=== PATIENT | female | born 1965 | race Caucasian/White ===

== ENCOUNTER → 2016-07-12 | Outpatient (CLI) | payer MEDICAID | LOC: FCPNEURO 21:00 | PROVIDERS: ATTEND Psychiatry & Neurology Sleep Medicine | DX: G47.33 Obstructive sleep apnea (adult) (pediatric) (principal); G47.39 Other sleep apnea; G47.36 Sleep related hypoventilation in conditions classified elsewhere ==

== ENCOUNTER 2016-11-23 13:14 | Emergency (ER) | payer MEDICAID ==
--- NOTE | 2016-11-23 13:26 | EDPHY ---
HPI/HX/ROS/PE/MDM - Data Points Imaging: Discussed imaging studies w/ call circuit worker Radiologist, I viewed and interpreted images myself Narrative: CHIEF COMPLAINT: Chest pain, leg swelling HPI: The patient is a 51 y/o female with a history of chronic intermittent chest pain complaining of chest pain onset last night. She developed right leg swelling four days ago that has caused difficulty walking due to pain. She began to feel short of breath and generally ill last night and subsequently developed chest pain. She describes her chest pain as heaviness and burning located substernally and radiating up towards her right shoulder. Her pain is aggravated by exhalation. She says this is unlike her previous episodes of chest pain. 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 REVIEW OF SYSTEMS: Aside from elements discussed in the HPI, a comprehensive 10-point review of systems was reviewed and is negative. PMH: chronic chest pain, ortho surgery, thymus surgery (open heart?) SOCIAL HISTORY: Smoker. PCP: Dr. Fang. Prior medical records reviewed including ED visit 02/01/12 for chest pain. PHYSICAL EXAM: General:Patient is alert, in no acute distress. ENT:Eyes are normal to inspection. ENT inspection normal. Neck: Normal inspection. Full range of motion. Respiratory:No respiratory distress. Breath sounds normal bilaterally. Cardiovascular: Regular rate and rhythm. Strong peripheral pulses. Normal cap refill. Abdomen:The abdomen is nontender to palpation. There are no peritoneal signs. Back: Normal to inspection. No tenderness to palpation. Skin: Normal color. No rash. Warm and dry. Extremities: 2+ pedal edema on right. Normal appearance. Full range of motion. Neuro: Oriented x3. Normal motor function. Normal sensory function. (Bari Calles) ED Course: IV established. Labs drawn. Patient placed on secured entrance monitor. Chest x-ray ordered. The 12 lead EKG was interpreted by myself. See hard copy and/or "tracemaster" electronic copy for interpretation. Chest x-ray: nothing acute. D-dimer elevated at 1.74. Due to this in conjunction with her symptoms, we will perform a chest CTA to rule out PE. Leg US ordered to rule out DVT. Patient agrees to imaging. 1510: Patient care signed out to Dr. Jiménez at shift change pending imaging results. (Bari Calles) 15:10 Assumed care of this patient from Dr. Calles at shift change. CTA chest and US right lower extremity pending at this time. [address] Walker, radiologist. CTA negative for PE. [address] Walker, radiologist. Leg US shows DVT. CT negative for PE. 1621 Assessed patient. She has been on anticoagulants before many years ago associated with a surgery. Plan to start her on Xarelto. Risks and benefits of this medication discussed. She will follow up with her PCP for continued management of her anticoagulation regimen. Return precautions discussed. The patient is comfortable with this plan. (Carlos Jiménez) - Data Points Imaging Results: Imaging Impressions Chest X-Ray 11/23/16 13:55 Impression: Mild airways disease. Otherwise nothing acute. Chest/Thorax CTA 11/23/16 14:27 Impression: 1. No evidence of pulmonary embolus using CT protocol. 2. No significant abnormality seen within the chest. These findings were discussed by telephone with Dr. Carlos Jiménez at 15:41 hour , 11/23/2016. Extremity Venous Study 11/23/16 15:04 Impression: 1. DVT right popliteal vein extending into the proximal calf veins as well as intramuscular gastrocnemius venous branch. These findings were discussed by telephone with Dr. Carlos Jiménez at 16:09 hour , 11/23/2016.. Laboratory Results: Laboratory Results 11/23/16 13:40 11/23/16 13:40 11/23/16 11/23/16 11/23/16 13:40 13:40 13:40 WBC 8.58 10^3/uL 10^3/uL (3.80-9.50) RBC 5.11 10^6/uL 10^6/uL (4.18-5.33) Hgb 15.6 g/dL g/dL (12.6-16.3) Hct 46.5 % % (38.0-47.0) MCV 91.0 fL fL (81.5-99.8) MCH 30.5 pg pg (27.9-34.1) MCHC 33.5 g/dL g/dL (32.4-36.7) RDW 13.4 % % (11.5-15.2) Plt Count 158 10^3/uL 10^3/uL (150-400) MPV 11.7 fL fL (8.7-11.7) Neut % (Auto) 73.2 % % (39.3-74.2) Lymph % (Auto) 20.2 % % (15.0-45.0) [place] % (Auto) 4.0 % L % (4.5-13.0) Eos % (Auto) 2.0 % % (0.6-7.6) Baso % (Auto) 0.3 % % (0.3-1.7) Nucleat RBC Rel Count 0.0 % % (0.0-0.2) Absolute Neuts (auto) 6.28 10^3/uL 10^3/uL (1.70-6.50) Absolute Lymphs (auto) 1.73 10^3/uL 10^3/uL (1.00-3.00) Absolute Monos (auto) 0.34 10^3/uL 10^3/uL (0.30-0.80) Absolute Eos (auto) 0.17 10^3/uL 10^3/uL (0.03-0.40) Absolute Basos (auto) 0.03 10^3/uL 10^3/uL (0.02-0.10) Absolute Nucleated RBC 0.00 10^3/uL 10^3/uL (0-0.01) Immature Gran % 0.3 % % (0.0-1.1) Immature Gran # 0.03 10^3/uL 10^3/uL (0.00-0.10) D-Dimer 1.74 ug/mLFEU H ug/mLFEU (0.00-0.50) Sodium 139 mEq/L mEq/L (134-144) Potassium 3.4 mEq/L L mEq/L (3.5-5.2) Chloride 101 mEq/L mEq/L (97-110) Carbon Dioxide 24 mEq/l mEq/l (22-31) Anion Gap 14 mEq/L mEq/L (8-16) BUN 8 mg/dL mg/dL (7-23) Creatinine 0.7 mg/dL mg/dL (0.6-1.0) Estimated GFR > 60 Glucose 126 mg/dL H mg/dL (70-100) Calcium 9.6 mg/dL mg/dL (8.5-10.4) Troponin I < 0.012 ng/mL ng/mL (0.000-0.034) General Time Seen by Provider: 11/23/16 13:24 Initial Vital Signs: Initial Vital Signs Temperature (C) 36.9 C 11/23/16 13:16 Heart Rate 106 H 11/23/16 13:16 Respiratory Rate 18 11/23/16 13:16 Blood Pressure 176/135 H 11/23/16 13:16 O2 Sat (%) 96 11/23/16 13:16 O2 Delivery Mode Room Air Allergies/Adverse Reactions: morphine Allergy (Unknown, Verified 02/01/12 12:27) Home Medications: Medication Instructions Recorded Ondansetron Odt [Zofran Odt] 4 mg PO Q4PRN PRN #20 tab 02/01/12 Oxycodone 15mg 02/01/12 Oxycodone 30mg 02/01/12 Oxycodone HCl/Acetaminophen 1 each PO 02/01/12 [Percocet 10-325 mg Tablet] Valium 02/01/12 Rivaroxaban [Xarelto 15mg (*)] 15 mg PO BID #42 tab 11/23/16 Rivaroxaban [Xarelto] 20 mg PO DAILY #67 tablet 11/23/16 Departure - Departure Disposition: Home, Routine, Self-Care Clinical Impression: Right leg DVT Chest pain Qualifiers: Chest pain type: other chest pain Qualified Code(s): R07.89 - Other chest pain Condition: Good Instructions: Rivaroxaban (By mouth), Chest Pain (ED), Deep Venous Thrombosis ( ED) Additional Instructions: Follow up with your primary care provider this week for management of your anticoagulation medication regimen. Take your Xarelto as prescribed. Please take caution not to fall or strike your head. Information about this medication is attached. Return to the Emergency Department for worsening chest pain, shortness of breath , severe headache, numbness or weakness on one side of your body, or other worsening of condition. Referrals: Ton Fang MD [Primary Care Provider] - As per Instructions Prescriptions: Rivaroxaban [Xarelto 15mg (*)] 15 mg PO BID #42 tab Rivaroxaban [Xarelto] 20 mg PO DAILY #67 tablet Report Scribed for: Bari Calles Report Scribed by: Holly Casey Date of Report: 11/23/16 Time of Report: 13:26 Physician Review and Approval Statement: Portions of this note were transcribed by an ED scribe. I personally performed the history, physical exam, and medical decision making; and confirm the accuracy of the information in the transcribed note.
--- NOTE | 2016-11-23 13:34 | CPEKG ---
Heart Rate: 99 RR Interval: 606 P-R Interval: 136 QRSD Interval: 92 QT Interval: 368 QTC Interval: 473 P [place]: 74 QRS [place]: 5 T Wave [place]: 116 EKG Severity - ABNORMAL ECG - EKG Impression: SINUS TACHYCARDIA EKG Impression: MULTIPLE VENTRICULAR PREMATURE COMPLEXES EKG Impression: LVH WITH SECONDARY REPOLARIZATION ABNORMALITY Electronically Signed By: Jose Arechiga 25-Nov-2016 07:29:05
[2016-11-23 13:48] LABS: % IMMATURE GRANULYOCYTES 0.3 % (0.0-1.1); ABSOLUTE IMMATURE GRANULOCYTES 0.03 10^3/uL (0.00-0.10); ADD DIFF? NO; ADD MORPH? NO; ADD SCAN? NO; ATYPICAL LYMPHOCYTE FLAG 0 (0-99); FRAGMENT RBC FLAG 0 (0-99); HEMATOCRIT 46.5 % (38.0-47.0); HEMOGLOBIN 15.6 g/dL (12.6-16.3); LEFT SHIFT FLG 0 (0-99); LIPEMIA HEMOLYSIS FLAG 80 (0-99); MEAN CELL HEMOGLOBIN 30.5 pg (27.9-34.1); MEAN CELL HEMOGLOBIN CONCENTR. 33.5 g/dL (32.4-36.7); MEAN PLATELET VOLUME 11.7 fL (8.7-11.7); PLATELET CLUMPS FLAG 0 (0-99); PLATELET COUNT 158 10^3/uL (150-400); RED BLOOD CELL COUNT 5.11 10^6/uL (4.18-5.33); RED CELL DISTRIBUTION WIDTH 13.4 % (11.5-15.2)
[2016-11-23 13:58] LABS: ANION GAP 14 mEq/L (8-16); CALCIUM 9.6 mg/dL (8.5-10.4); CARBON DIOXIDE 24 mEq/l (22-31); CHLORIDE 101 mEq/L (97-110); CREATININE 0.7 mg/dL (0.6-1.0); GLOMERULAR FILTRATION RATE > 60; GLUCOSE 126 mg/dL (70-100); POTASSIUM 3.4 mEq/L (3.5-5.2); SODIUM 139 mEq/L (134-144)
[2016-11-23 14:09] LABS: TROPONIN I < 0.012 ng/mL (0.000-0.034)
[2016-11-23 14:30] VITALS: O2SAT 90
[2016-11-23] MEDS ORDERED: IOPAMIDOL (ISOVUE 370) 100 ML BTL IV ONE (14:43)
[2016-11-23 16:06] VITALS: BP 144/80; PULSE 81; RESP 20
[2016-11-23] MEDS ORDERED: RIVAROXABAN 15 MG TAB PO ONE (16:23)
[2016-11-23 16:43] VITALS: TEMP 97.7
== END 2016-11-23 16:54 | disposition home or self-care (01) ==
DX: I82.401 Acute embolism and thrombosis of unspecified deep veins of right lower extremity (principal); R07.89 Other chest pain; F17.200 Nicotine dependence, unspecified, uncomplicated
CPT/HCPCS: Q9967

== ENCOUNTER 2016-11-24 18:40 | Emergency (ER) | payer MEDICAID ==
[2016-11-24 18:47] VITALS: TEMP 97.7
--- NOTE | 2016-11-24 19:01 | CPEKG ---
Heart Rate: 87 RR Interval: 690 P-R Interval: 135 QRSD Interval: 80 QT Interval: 376 QTC Interval: 453 P [place]: 40 QRS [place]: 4 T Wave [place]: 71 EKG Severity - ABNORMAL ECG - EKG Impression: SINUS RHYTHM EKG Impression: LVH WITH SECONDARY REPOLARIZATION ABNORMALITY Electronically Signed By: Isamar Hood 24-Nov-2016 21:15:41
--- NOTE | 2016-11-24 19:24 | EDPHY ---
HPI/HX/ROS/PE/MDM Narrative: CHIEF COMPLAINT: Chest pain, recent diagnosis of DVT HISTORY OF PRESENT ILLNESS: The patient is a 51 y/o female was seen here yesterday with leg swelling and chest pain. Evaluation demonstrated a DVT in right leg and no PE; she was discharged with Xarelto and received her first dose in the ED. She presents tonight as she is continuing to have chest discomfort, described as a burning, pressure pain into her right shoulder and down her right arm. Additionally, she has not been able to receive further anticogulation as she is waiting on insurance pre approval for hte Xarelto. Her PCP advised that she return to the ED. Chest pain is fairly constant, with occasional severe "spasms of pain". She reports that she has minor lightheadedness and dizziness. No SOB. Denies diabetes, family history of CAD, hypertension, history of gallbladder disease, asthma. No fever, chills, shortness of breath, vomiting, diarrhea, urinary complaints, headache. Prior medical records reviewed including ED visit on 11/23/16 with . REVIEW OF SYSTEMS: Aside from elements discussed in the HPI, a comprehensive 10-point review of systems was reviewed and is negative. PAST MEDICAL HISTORY: DVT of right leg Right hip replacement SOCIAL HISTORY: Former smoker On Medicaid Lives in [place] VITAL SIGNS: Reviewed by me GENERAL: Well-developed, moderately obese, in no respiratory distress. HEENT: Atraumatic. Eyes: No icterus, no injection. Mouth: moist mucous membranes. No erythema or lesions. Neck: supple with no adenopathy. LUNGS: Clear to auscultation bilaterally, no wheezes, rhonchi or rales. No crepitus, no chest wall tenderness. CARDIAC: Regular rate and rhythm, no rubs, murmurs or gallops. ABDOMEN: Soft, no epigastic or RUQ pain, nontender, nondistended, bowel sounds normal. BACK: No CVA tenderness. EXTREMITIES: No erythema. Bilaterally swollen legs. No trauma. Range of motion is normal throughout. NEURO: Alert and oriented, grossly nonfocal. SKIN: Warm and dry, no rash. PSYCHIATRIC: Normal mentation, no agitation. Portions of this note were transcribed by a medical fee clerk. I personally performed a history, physical exam, medical decision making, and confirmed accuracy of information the transcribed note. ED Course: The patient is a 51 y/o female who presents with ongoing chest discomfort. Patient was in the emergency department yesterday was diagnosed with a DVT and at that time had a negative CT scan for pulmonary embolism. She does report however ongoing episodes of significant burning discomfort in the epigastrium, mid sternal, and radiating to the right shoulder. Sometimes the discomfort radiates into her arm. Evaluation emergency department included an EKG demonstrating left ventricular hypertrophy with no acute ischemic changes. Patient's troponin remains negative. Chest x-ray demonstrates no acute interval changes. Patient's pain was treated in the emergency department with a GI cocktail. She experienced some relief. She also underwent ultrasound to evaluate for gallstone disease causing this discomfort. Patient had been discharged from the emergency department with a prescription of Xarelto. However, she has been unable to fill the Xarelto until preauthorization is obtained. Patient was given Lovenox, 135 mg, subq in the emergency department. She will be discharged with a prescription of Lovenox 135 twice daily to use until she is able to obtain her Xarelto. MDM: After history and physical examination, the differential for chest pain was considered, including but not limited to, myocardial ischemia, acute coronary syndrome, pulmonary embolus, chest wall pain, pleural inflammation, gastrointestinal source, and pulmonary infectious causes. - Data Points Imaging Results: Ultrasound: Impression: 1. Normal gallbladder. No cholelithiasis, biliary dilation, or free fluid. 2. Hepatomegaly and hepatic steatosis. Findings discussed with Emergency Department physician, Isamar Hood M.D., at November 24, 2016 at 2141. Dictated By: Mack Hua MD CXR: Impression: Clear lungs. No acute process since one day prior. Dictated By : Mack Hua MD Imaging: Discussed imaging studies w/ yardage caller Radiologist, I viewed and interpreted images myself Laboratory Results: Laboratory Results 11/24/16 19:10 11/24/16 19:10 Medications Given: Discontinued Medications Hydrocodone Bitart/Acetaminophen ([place] 5/325mg Prepack#6) 1 btl TAKEHOME EDNOW ONE Stop: 11/24/16 21:57 Last Admin: 11/24/16 22:13 Dose: 1 btl Al Hydroxide/Mg Hydroxide (Maalox Susp) 30 ml PO ONCE ONE Stop: 11/24/16 19:33 Last Admin: 11/24/16 19:49 Dose: 30 ml Enoxaparin Sodium (Lovenox) 135 mg SC EDNOW ONE Stop: 11/24/16 20:16 Last Admin: 11/24/16 20:21 Dose: 135 mg Hydromorphone HCl (Dilaudid) 1 mg IVP EDNOW ONE Stop: 11/24/16 20:46 Last Admin: 11/24/16 20:49 Dose: 1 mg Hyoscyamine Sulfate (Levsin, Hyomax-Sl) 0.25 mg PO ONCE ONE Stop: 11/24/16 19:33 Last Admin: 11/24/16 19:48 Dose: 0.25 mg Sodium Chloride (Ns) 500 mls @ 0 mls/hr IV EDNOW ONE; Wide Open PRN Reason: Protocol Stop: 11/24/16 19:33 Last Admin: 11/24/16 19:49 Dose: 500 mls Lidocaine (Lidocaine 2% Viscous) 15 ml PO ONCE ONE Stop: 11/24/16 19:33 Last Admin: 11/24/16 19:48 Dose: 15 ml General Time Seen by Provider: 11/24/16 19:09 Initial Vital Signs: Initial Vital Signs Temperature (C) 36.5 C 11/24/16 18:43 Heart Rate 93 11/24/16 18:43 Respiratory Rate 16 11/24/16 18:43 Blood Pressure 142/81 H 11/24/16 18:43 O2 Sat (%) 95 11/24/16 18:43 O2 Delivery Mode Room Air O2 (L/minute) 2 Allergies/Adverse Reactions: morphine Allergy (Unknown, Verified 11/24/16 18:48) Home Medications: Medication Instructions Recorded Enoxaparin [Lovenox 150mg (*)] 135 mg SC BID #20 syr 11/24/16 Oxycodone 11/24/16 Departure - Departure Disposition: Home, Routine, Self-Care Clinical Impression: Chest pain Qualifiers: Chest pain type: unspecified Qualified Code(s): R07.9 - Chest pain, unspecified DVT (deep venous thrombosis) Qualifiers: DVT location: lower extremity Affected thrombotic vein of extremity: popliteal Chronicity: unspecified Laterality: right Qualified Code(s): I82.431 - Acute embolism and thrombosis of right popliteal vein Condition: Good Instructions: Hydrocodone/Acetaminophen (By mouth), Enoxaparin (By injection), Chest Pain (ED), Deep Venous Thrombosis (ED), Gastroesophageal Reflux Disease ( ED), Esophageal Spasm (ED) Additional Instructions: 1. It is important that you obtain anticoagulation for the DVT. You were started on Lovenox tonight, and you should continue Lovenox injections twice daily. Dose is Lovenox 135 mg two times a day. 2. You should continue the Lovenox until you are started on Xarelto or until Dr. Ton Fang recommends other anticoagulants. 3. For your chest discomfort, I would recommend beginning omeprazole, this is available [id number]. You may also take Maalox or Mylanta. 4. If you have severe discomfort, you may take hydrocodone. 5. Return to the emergency department or seek care urgently if your pain is continuing to worsen despite the above measures, if you have pain associated with lightheadedness, dizziness, fainting, vomiting, sweating, or other concerns. Referrals: Ton Fang MD [Primary Care Provider] - As per Instructions Prescriptions: Enoxaparin [Lovenox 150mg (*)] 135 mg SC BID #20 syr Report Scribed for: Isamar Hood Report Scribed by: Lisha Sarah Date of Report: 11/24/16 Time of Report: 19:37
[2016-11-24] MEDS ORDERED: MAG HYDROX/AL HYDROX/SIMETH 30 ML UDCUP PO ONE (19:32)
[2016-11-24] MEDS ORDERED: NS 500 ML IV ONE (19:32)
[2016-11-24] MEDS ORDERED: LIDOCAINE 2% VISCOUS 15 ML UDCUP PO ONE (19:32)
[2016-11-24] MEDS ORDERED: HYOSCYAMINE SULFATE 0.125 MG TAB PO ONE (19:32)
[2016-11-24 19:44] LABS: % IMMATURE GRANULYOCYTES 0.4 % (0.0-1.1); ABSOLUTE IMMATURE GRANULOCYTES 0.04 10^3/uL (0.00-0.10); ADD DIFF? NO; ADD MORPH? NO; ADD SCAN? NO; ATYPICAL LYMPHOCYTE FLAG 0 (0-99); FRAGMENT RBC FLAG 0 (0-99); HEMATOCRIT 46.1 % (38.0-47.0); HEMOGLOBIN 15.2 g/dL (12.6-16.3); LEFT SHIFT FLG 0 (0-99); LIPEMIA HEMOLYSIS FLAG 80 (0-99); MEAN CELL HEMOGLOBIN 30.6 pg (27.9-34.1); MEAN CELL VOLUME 92.8 fL (81.5-99.8); MEAN PLATELET VOLUME 11.3 fL (8.7-11.7); PLATELET CLUMPS FLAG 70 (0-99); PLATELET COUNT 161 10^3/uL (150-400); RED BLOOD CELL COUNT 4.97 10^6/uL (4.18-5.33); RED CELL DISTRIBUTION WIDTH 13.4 % (11.5-15.2)
[2016-11-24 19:51] LABS: ALANINE AMINOTRANSFERASE 33 IU/L (9-52); ALBUMIN 4.6 g/dL (3.5-5.0); ALKALINE PHOSPHATASE 77 IU/L (38-126); ANION GAP 12 mEq/L (8-16); ASPARTATE AMINOTRANSFERASE 24 IU/L (14-46); BILIRUBIN,TOTAL 0.7 mg/dL (0.1-1.4); BILIRUBIN-CONJUGATED 0.4 mg/dL (0.0-0.5); BILIRUBIN-UNCONJUGATED 0.3 mg/dL (0.0-1.1); CALCIUM 9.2 mg/dL (8.5-10.4); CARBON DIOXIDE 26 mEq/l (22-31); CHLORIDE 99 mEq/L (97-110); CREATININE 0.9 mg/dL (0.6-1.0); GLOMERULAR FILTRATION RATE > 60; GLUCOSE 97 mg/dL (70-100); POTASSIUM 3.6 mEq/L (3.5-5.2); SODIUM 137 mEq/L (134-144); TOTAL PROTEIN 7.7 g/dL (6.3-8.2)
[2016-11-24] MEDS ORDERED: ENOXAPARIN 150 MG/ML SYR SC ONE (20:15)
[2016-11-24 20:24] LABS: TROPONIN I 0.012 ng/mL (0.000-0.034)
[2016-11-24] MEDS ORDERED: HYDROmorphONE/DILAUDID 1 MG/ML INJ IVP ONE (20:45)
[2016-11-24] MEDS ORDERED: HYDROCOD/APAP 5/325 PREPACK#6 BTL TAKEHOME ONE (21:56)
[2016-11-24 22:25] VITALS: BP 122/73; PULSE 80; RESP 18; O2SAT 95
== END 2016-11-24 22:30 | disposition home or self-care (01) ==
DX: R07.9 Chest pain, unspecified (principal); I82.431 Acute embolism and thrombosis of right popliteal vein; E86.9 Volume depletion, unspecified; Z87.891 Personal history of nicotine dependence
CPT/HCPCS: 96374; J1170

== ENCOUNTER 2017-09-21 07:31 | Emergency (ER) | payer MEDICAID ==
--- NOTE | 2017-09-21 07:38 | EDPHY ---
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 She presents to the ED with a several day history of right leg pain in the thigh extending down to the calf with subjective swelling. The patient also complains of some generalized anterior chest discomfort. The patient does have a mild occipital headache. She reports a low-grade subjective fever yesterday. She denies any vomiting or diarrhea. 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 The patient reports she has been compliant with her anticoagulation. The patient denies any recent medication changes. REVIEW OF SYSTEMS: A comprehensive 10 point review of systems is otherwise negative aside from elements mentioned in the history of present illness. Source: Patient - Personal History Tetanus Vaccine Date: < 10 YEARS - Medical/Surgical History Hx Asthma: No Hx Chronic Respiratory Disease: No Hx Diabetes: No Hx Cardiac Disease: No Hx Renal Disease: No Hx Cirrhosis: No Hx Alcoholism: No Hx HIV/AIDS: No Hx Splenectomy or Spleen Trauma: No Other PMH: [facility] 7 YEARS AGO. MRSA. THYROIDECTOMY. ANXIETY - Social History Smoking Status: Light smoker - Physical Exam Exam: General Appearance: Obese female, mild discomfort secondary to pain Eyes: Pupils equal and round no pallor or injection ENT, Mouth: Mucous membranes moist Respiratory: There are no retractions, lungs are clear to auscultation Cardiovascular: Regular rate and rhythm Gastrointestinal: Abdomen is soft and nontender, no masses, bowel sounds normal Neurological: 5/5 strength all 4 extremities Skin: Warm and dry, no rashes, varicosities noted bilateral lower legs Musculoskeletal: Neck is supple nontender Extremities: No appreciable asymmetry noted, tenderness to palpation in the calf and thigh. 2+ dorsalis pedis and posterior tibial pulses noted bilaterally Psychiatric: Patient is oriented X 3, there is no agitation Constitutional: Initial Vital Signs Temperature (C) 37.0 C 09/21/17 07:42 Heart Rate 67 09/21/17 07:42 Respiratory Rate 18 09/21/17 07:42 Blood Pressure 158/86 H 09/21/17 07:42 O2 Sat (%) 95 09/21/17 07:42 O2 Delivery Mode Room Air Allergies/Adverse Reactions: morphine Allergy (Unknown, Verified 11/24/16 18:48) Home Medications: Medication Instructions Recorded Xarelto 09/21/17 oxyCODONE HCL 09/21/17 Medical Decision Making - Diagnostics EKG Interpretation: EKG: Complete interpretation has been separately recorded in the Tracemaster archive. Summary impression: Sinus rhythm, rate 71, no acute ischemic changes noted Imaging Results: Imaging Impressions Extremity Venous Study 09/21/17 08:41 Impression: Negative for right lower extremity DVT. Chest/Thorax CTA 09/21/17 08:42 Impression: 1. Negative for acute central or segmental pulmonary embolus. 2. Mild cardiomegaly. 3. Mediastinal and hilar adenopathy, grossly unchanged, likely reactive. 4. Hypodense lesion in the left thyroid lobe. If not already performed, could consider thyroid ultrasound. ED Course/Re-evaluation: The patient presents to the ED with multiple complaints including leg pain, chest pain, mild headache and general malaise. The patient has a history of DVT and is anticoagulated. The patient was noted to have an elevated D-dimer. She underwent a right lower extremity ultrasound which demonstrated no evidence of a blood clot. Patient had a CT pulmonary angiogram which demonstrates no evidence of a PE or dissection. The patient's EKG demonstrates no evidence of ischemia and her troponin is normal. She is afebrile and has no leukocytosis. She has no focal findings on her examination. She is neurologically intact. At this point time the etiology of her symptoms is uncertain. I see no evidence of an acute emergency condition at this point time. I do feel it is reasonable to have the patient discharged home and follow up with her primary care provider. She has been given customary aftercare instructions and return precautions. Differential Diagnosis: Differential diagnosis considered includes aortic dissection, pulmonary embolism , acute coronary syndrome, pericarditis, myocarditis, DVT, cellulitis, abscess, dehydration, metabolic abnormality, arrhythmia - Data Points Laboratory Results: Laboratory Results 09/21/17 08:00 09/21/17 08:00 09/21/17 09/21/17 09/21/17 08:07 08:04 08:00 WBC RBC Hgb POC Hgb 14.6 gm/dL gm/dL (12.6-16.3) Hct POC Hct 43 % % (38-47) MCV MCH MCHC RDW Plt Count MPV Neut % (Auto) Lymph % (Auto) [place] % (Auto) Eos % (Auto) Baso % (Auto) Nucleat RBC Rel Count Absolute Neuts (auto) Absolute Lymphs (auto) Absolute Monos (auto) Absolute Eos (auto) Absolute Basos (auto) Absolute Nucleated RBC Immature Gran % Immature Gran # PT INR D-Dimer POC Sodium 142 mEq/L mEq/L (135-145) Sodium 140 mEq/L mEq/L (135-145) POC Potassium 3.7 mEq/L mEq/L (3.3-5.0) Potassium 3.7 mEq/L mEq/L (3.3-5.0) POC Chloride 102 mEq/L mEq/L (97-110) Chloride 104 mEq/L mEq/L (97-110) Carbon Dioxide 28 mEq/l mEq/l (22-31) Anion Gap 8 mEq/L mEq/L (8-16) POC BUN 9 mg/dL mg/dL (7-23) BUN 11 mg/dL mg/dL (7-23) Creatinine 0.8 mg/dL mg/dL (0.6-1.0) POC Creatinine 0.8 mg/dL mg/dL (0.6-1.0) Estimated GFR > 60 Glucose 95 mg/dL mg/dL (70-100) POC Glucose 99 mg/dL mg/dL (70-100) Calcium 9.2 mg/dL mg/dL (8.5-10.4) POC Troponin I 0.00 ng/mL ng/mL (0.00-0.08) 09/21/17 09/21/17 08:00 08:00 WBC 9.34 10^3/uL 10^3/uL (3.80-9.50) RBC 4.75 10^6/uL 10^6/uL (4.18-5.33) Hgb 14.2 g/dL g/dL (12.6-16.3) POC Hgb Hct 43.4 % % (38.0-47.0) POC Hct MCV 91.4 fL fL (81.5-99.8) MCH 29.9 pg pg (27.9-34.1) MCHC 32.7 g/dL g/dL (32.4-36.7) RDW 13.5 % % (11.5-15.2) Plt Count 149 10^3/uL L 10^3/uL (150-400) MPV 11.6 fL fL (8.7-11.7) Neut % (Auto) 79.1 % H % (39.3-74.2) Lymph % (Auto) 14.5 % L % (15.0-45.0) [place] % (Auto) 4.7 % % (4.5-13.0) Eos % (Auto) 1.3 % % (0.6-7.6) Baso % (Auto) 0.2 % L % (0.3-1.7) Nucleat RBC Rel Count 0.0 % % (0.0-0.2) Absolute Neuts (auto) 7.39 10^3/uL H 10^3/uL (1.70-6.50) Absolute Lymphs (auto) 1.35 10^3/uL 10^3/uL (1.00-3.00) Absolute Monos (auto) 0.44 10^3/uL 10^3/uL (0.30-0.80) Absolute Eos (auto) 0.12 10^3/uL 10^3/uL (0.03-0.40) Absolute Basos (auto) 0.02 10^3/uL 10^3/uL (0.02-0.10) Absolute Nucleated RBC 0.00 10^3/uL 10^3/uL (0-0.01) Immature Gran % 0.2 % % (0.0-1.1) Immature Gran # 0.02 10^3/uL 10^3/uL (0.00-0.10) PT 13.9 SEC SEC (12.0-15.0) INR 1.05 (0.83-1.16) D-Dimer 0.86 ug/mLFEU H ug/mLFEU (0.00-0.50) POC Sodium Sodium POC Potassium Potassium POC Chloride Chloride Carbon Dioxide Anion Gap POC BUN BUN Creatinine POC Creatinine Estimated GFR Glucose POC Glucose Calcium POC Troponin I Medications Given: Discontinued Medications Acetaminophen (Tylenol) 1,000 mg PO EDNOW ONE Stop: 09/21/17 08:30 Last Admin: 09/21/17 08:30 Dose: 1,000 mg Point of Care Test Results: Chemistry 07/11/18 07/11/18 08:07 08:04 POC Sodium 142 mEq/L mEq/L (135-145) POC Potassium 3.7 mEq/L mEq/L (3.3-5.0) POC Chloride 102 mEq/L mEq/L (97-110) POC BUN 9 mg/dL mg/dL (7-23) POC Creatinine 0.8 mg/dL mg/dL (0.6-1.0) POC Glucose 99 mg/dL mg/dL (70-100) POC Troponin I 0.00 ng/mL ng/mL (0.00-0.08) ISTAT H&H 09/21/17 08:07 POC Hgb 14.6 gm/dL gm/dL (12.6-16.3) POC Hct 43 % % (38-47) Departure - Departure Disposition: Home, Routine, Self-Care Clinical Impression: Chest wall pain, Right leg pain Condition: Good Instructions: Musculoskeletal Pain (ED) Additional Instructions: 1. The workup in the emergency department is unrevealing for evidence of cardiac disease, DVT, infection, arrhythmia or blood clot. 2. Please follow up with your primary care provider for a recheck within the week. 3. Take Ibuprofen or Motrin 600 mg by mouth three times a day. 4. Continue your regular pain medications. 5. Lidocaine patches as prescribed for pain. Referrals: Ton Fang MD [Primary Care Provider] - As per Instructions
[2017-09-21 08:09] LABS: PLATELET COUNT 149 10^3/uL (150-400)
[2017-09-21 08:22] LABS: INR 1.05 (0.83-1.16); PROTIME(PATIENT) 13.9 SEC (12.0-15.0)
--- NOTE | 2017-09-21 08:26 | CPEKG ---
Heart Rate: 71 RR Interval: 845 P-R Interval: 126 QRSD Interval: 110 QT Interval: 407 QTC Interval: 443 P [place]: 0 QRS [place]: -28 T Wave [place]: 119 EKG Severity - ABNORMAL ECG - EKG Impression: SINUS RHYTHM EKG Impression: NONSPECIFIC INTRAVENTRICULAR CONDUCTION DELAY EKG Impression: LEFT VENTRICULAR HYPERTROPHY Electronically Signed By: Ihsan Ross 21-Sep-2017 09:34:52
[2017-09-21] MEDS ORDERED: ACETAMINOPHEN 500 MG TAB ONE (08:28)
[2017-09-21] MEDS ORDERED: ACETAMINOPHEN 500 MG TAB PO ONE (08:29)
[2017-09-21] MEDS ORDERED: IOPAMIDOL (ISOVUE 370) 100 ML BTL IV ONE (08:51)
[2017-09-21 10:46] VITALS: BP 145/85
== END 2017-09-21 10:55 | disposition home or self-care (01) ==
DX: R07.89 Other chest pain (principal); M79.604 Pain in right leg; F17.200 Nicotine dependence, unspecified, uncomplicated; Z79.01 Long term (current) use of anticoagulants
CPT/HCPCS: 82435-PO; 82565-PO; 82947-PO; 84132-PO; 84295-PO; 84484-PO; 84520-PO; 85014-PO; Q9967